=== PATIENT | male | born 1970 | race Caucasian/White ===

== ENCOUNTER 2017-01-04 11:31 | Emergency (ER) | payer OTHER ==
[~2017-01-04 11:31] MED LIST: BACTRIM DS TABL1 TA1 PO; DICLOFENAC PO; KEFLEX500 M2 PO; LORTAB 10/500 T1 TAB PO; NO MEDICATIONS; PROZAC PO
== END 2017-01-04 12:00 | disposition home or self-care (01) ==
LOC: SED 11:31
DX: L03.115 Cellulitis of right lower limb (principal); F17.210 Nicotine dependence, cigarettes, uncomplicated
CPT/HCPCS: 99282